=== PATIENT | male | born 1990 | race African-American/Black ===

== ENCOUNTER 2018-09-04 18:35 | Emergency (ER) | payer SELFPAY ==
[~2018-09-04] VITALS: Ht 177.8 cm; Wt 93.2 kg
[~2018-09-04 18:35] MED LIST: BACTRIM DS 8001 TAB PO; NO HOME MEDICATIONS
[2018-09-04 18:44] VITALS: BP 139/65; PULSE 88; TEMP 97.4
[2018-09-05] MEDS ORDERED: CEPHALEXIN500 M1 PO (04:35)
[2018-09-05] MEDS ORDERED: BACTRIM DS 8001 TAB PO (04:35)
== END 2018-09-04 20:40 | disposition home or self-care (01) ==
LOC: COL.ER 18:35
DX: T22.211A Burn of second degree of right forearm, initial encounter (principal); X12.XXXA Contact with other hot fluids, initial encounter